=== PATIENT | female | born 1965 | race Caucasian/White ===

== ENCOUNTER → 2017-05-15 | Outpatient (CLI) | payer OTHER ==
[~2017-05-15] MED LIST: ALDACTONE 25MG25 M1 PO; SYNTHROID0.025 MG PO; WELLBUTRIN XL150 M1 PO; ZOFRAN 4MG T4 MG/TAB PO
== END ==
LOC: MC.RAD 07:00
DX: Z12.31 Encounter for screening mammogram for malignant neoplasm of breast (principal); Z90.13 Acquired absence of bilateral breasts and nipples

== ENCOUNTER → 2018-07-19 | Outpatient (CLI) | payer OTHER | LOC: COL.RAD 13:54 | DX: E04.2 Nontoxic multinodular goiter (principal) ==

== ENCOUNTER → 2018-08-21 | Outpatient (CLI) | payer OTHER | LOC: MC.RAD 16:00 | DX: Z12.31 Encounter for screening mammogram for malignant neoplasm of breast (principal) ==

== ENCOUNTER → 2019-06-21 | Outpatient (CLI) | payer OTHER | LOC: COL.RAD 12:23 | DX: E04.1 Nontoxic single thyroid nodule (principal) ==

== ENCOUNTER → 2019-10-03 | Outpatient (CLI) | payer OTHER | LOC: MC.RAD 16:12 | DX: Z12.31 Encounter for screening mammogram for malignant neoplasm of breast (principal) ==

== ENCOUNTER → 2020-10-05 | Outpatient (CLI) | payer OTHER | LOC: MC.RAD 10:01 | DX: Z12.31 Encounter for screening mammogram for malignant neoplasm of breast (principal) ==

== ENCOUNTER → 2021-02-25 | Outpatient (CLI) | payer OTHER ==
[~2021-02-25] MED LIST changes: +ASPIRIN E.C. 8181 MG PO; +CALCIUM/MAGNESI1 T18 PO; +MASON NATURAL2000 IU PO; +NORVASC 5MG5 MG/TAB PO; +PRILOSEC 20MG20 MG PO; +PROAIR HFA0.09 MG/AC IH; +PROTONIX20 MG PO; +VESICARE 5MG5 MG PO; +VITAMIN B12 1541 TAB PO; +[UNRECOGNIZED DRUG - OTHER]
== END ==
LOC: COL.CARD 08:00
DX: R00.2 Palpitations (principal)

== ENCOUNTER → 2021-03-24 | Outpatient (CLI) | payer OTHER | LOC: COL.RAD 08:33 | DX: R13.13 Dysphagia, pharyngeal phase (principal) ==

== ENCOUNTER 2021-04-28 07:25 | Day surgery (SDC) | payer OTHER ==
[2021-04-28] VITALS (9 sets, daily range): BP systolic 113–134; BP diastolic 51–91; PULSE 64–78; TEMP 98.2
[~2021-04-28] VITALS: Ht 172.8 cm; Wt 119.0 kg
[~2021-04-28 07:25] MED LIST changes: -ASPIRIN E.C. 8181 MG PO; -CALCIUM/MAGNESI1 T18 PO; -MASON NATURAL2000 IU PO; -NORVASC 5MG5 MG/TAB PO; -PRILOSEC 20MG20 MG PO; -PROAIR HFA0.09 MG/AC IH; -PROTONIX20 MG PO; -VESICARE 5MG5 MG PO; -VITAMIN B12 1541 TAB PO; -[UNRECOGNIZED DRUG - OTHER]
[2021-04-28] MEDS ORDERED: MASON NATURAL2000 IU PO (08:21)
[2021-04-28] MEDS ORDERED: CALCIUM/MAGNESI1 T18 PO (08:22)
[2021-04-28] MEDS ORDERED: VESICARE 5MG5 MG PO (08:22)
[2021-04-28] MEDS ORDERED: ASPIRIN E.C. 8181 MG PO (08:23)
[2021-04-28] MEDS ORDERED: VITAMIN B12 1541 TAB PO (08:24)
[2021-04-28] MEDS ORDERED: PROTONIX20 MG PO ×2 (08:25→08:30)
[2021-04-28 08:26] LABS: HEMATOCRIT 41.6 % (37.0-47.0); HEMOGLOBIN 13.9 g/dl (12.5-16.0); MEAN CELL VOLUME 94 fl (80.0-100.0); MEAN CORPUSCULAR HEMOGLOBIN 31 pg (27.0-31.0); MEAN CORPUSCULAR HGB CONC 33 g/dl (33.0-37.0); MEAN PLATELET VOLUME 10.6 fl (7.4-10.4); PLATELET COUNT 248 K/mm3 (130-400); RED BLOOD COUNT 4.42 M/mm3 (4.10-5.30); REDCELL DISTRIBUTION WIDTH-CV 13.1 % (11.5-14.5)
[2021-04-28 08:27] LABS: PROTHROMBIN TIME 10.6 SECONDS (9.7-12.8)
[2021-04-28] MEDS ORDERED: PRILOSEC 20MG20 MG PO (08:28)
[2021-04-28 08:29] LABS: PARTIAL THROMBOPLASTIN TIME 30.2 SECONDS (26.0-37.0)
[2021-04-28] MEDS ORDERED: [UNRECOGNIZED DRUG - OTHER] (08:31)
[2021-04-28 08:32] LABS: CALCIUM 9.4 mg/dL (8.4-10.2); CREATININE, serum 0.97 (0.52-1.25); POTASSIUM 4.2 mmol/L (3.4-5.0)
--- NOTE | 2021-04-28 10:28 | NUR ---
SEE MERGE DOCUMENTATION FOR MEDICATION ADMINISTRATION AND INTRA/POST PROCEDURE SEDATION ASSESSMENTS.
--- NOTE | 2021-04-28 11:15 | NUR ---
pt to eu 10 via bed from [employer] [employer], awake and alert, in room, TR band intact. tele on. call light in reach, sips on sprite
[2021-04-28] MEDS ORDERED: NORVASC 5MG5 MG/TAB PO (11:56)
[2021-04-28] MEDS ORDERED: PROAIR HFA0.09 MG/AC IH (11:57)
--- NOTE | 2021-04-28 12:00 | NUR ---
con't same, ordered lunch, called for chest x-ray, Dr Mao into see pt
--- NOTE | 2021-04-28 13:15 | NUR ---
started releasing band 2cc every 10 min with air remvoval completed by 1340, bandaid over site then coban wrapped for support
--- NOTE | 2021-04-28 13:45 | NUR ---
pt up to b/r to void, gait steady. IV dc'd intact. reviewed discharge inst. with pt, new appt made, also to crop picker 2 new RX, information given. Also to stop 2 medications on list. Followup appt given also and care of site and precautions with verbal understanding. Pt is up and dressed, discharged at 1405 via w/c to car with
== END 2021-04-28 14:05 | disposition home or self-care (01) ==
LOC: COL.CAR 07:25
PROVIDERS: Internal Medicine Cardiovascular Disease
DX: I25.10 Atherosclerotic heart disease of native coronary artery without angina pectoris (principal); I35.8 Other nonrheumatic aortic valve disorders; I10 Essential (primary) hypertension; E07.9 Disorder of thyroid, unspecified; F32.9 Major depressive disorder, single episode, unspecified; Z90.710 Acquired absence of both cervix and uterus; Z79.82 Long term (current) use of aspirin; Z20.822 Contact with and (suspected) exposure to COVID-19; Z79.899 Other long term (current) drug therapy; Z83.3 Family history of diabetes mellitus; Z82.3 Family history of stroke
CPT/HCPCS: C1769; C1887; C1894; J1644; J2250; J3010; Q9967

== ENCOUNTER → 2021-10-19 | Outpatient (CLI) | payer OTHER ==
[~2021-10-19] MED LIST changes: +ASPIRIN E.C. 8181 MG PO; +CALCIUM/MAGNESI1 T18 PO; +MASON NATURAL2000 IU PO; +NORVASC 5MG5 MG/TAB PO; +PRILOSEC 20MG20 MG PO; +PROAIR HFA0.09 MG/AC IH; +PROTONIX20 MG PO; +VESICARE 5MG5 MG PO; +VITAMIN B12 1541 TAB PO; +[UNRECOGNIZED DRUG - OTHER]
== END ==
LOC: MC.RAD 15:39
DX: Z12.31 Encounter for screening mammogram for malignant neoplasm of breast (principal)

== ENCOUNTER → 2022-05-10 | Outpatient (CLI) | payer OTHER | LOC: COL.RAD 05-03 08:00 | DX: R68.81 Early satiety (principal) | CPT/HCPCS: A9541 ==

== ENCOUNTER → 2023-10-24 | Outpatient (CLI) | payer OTHER | LOC: MC.RAD 08:28 | DX: Z12.31 Encounter for screening mammogram for malignant neoplasm of breast (principal) ==